=== PATIENT | female | born 1995 | race African-American/Black ===

== ENCOUNTER 2022-04-01 17:04 | Emergency (ER) | payer SELFPAY ==
[~2022-04-01] VITALS: Ht 182.9 cm; Wt 101.0 kg
[~2022-04-01 17:04] MED LIST: CEPH500C2 MT; FAMO-135 MT; MAG-55 MT; ONDA4TAB5 MT
[2022-04-01] MEDS ORDERED: HALOPERIDOL LACTATE 5MG/ML VIAL IM ONE (17:15)
[2022-04-01] MEDS ORDERED: KETOROLAC 30MG/ML VIAL IV STA (17:39)
[2022-04-01] MEDS ORDERED: ACETAMINOPHEN 325MG TABLET PO STA (17:39)
[2022-04-01] MEDS ORDERED: SODIUM CHLORIDE 0.9% 1,000 ML IV ONE (17:45)
[2022-04-01 18:02] LABS: BASOPHILS % 0.3 % (0.0-2.0); HEMATOCRIT. 37.8 % (36.0-48.0); HEMOGLOBIN. 13.1 g/dL (12.0-16.0); LYMPHOCYTES % 12.6 % (20.0-50.0); MEAN CORPUSCULAR HEMOGLOBIN 31.2 pg (28.0-32.0); MEAN PLATELET VOLUME 8.6 fl (7.4-10.4); MONOCYTES % 10.7 % (2.0-8.0); NEUTROPHILS % 76.4 % (40.0-76.0); PLATELET 270 x1000/uL (130-400); RED CELL DISTRIBUTION WIDTH 12.9 % (11.6-14.6)
[2022-04-01 18:11] LABS: PROTHROMBIN TIME 11.2 sec (9.6-11.0)
[2022-04-01 18:15] LABS: CHLORIDE 105 mEq/L (98-107)
[2022-04-01 18:23] LABS: ETHANOL BLOOD < 10 mg/dL
[2022-04-01] MEDS ORDERED: FAMOTIDINE 20MG/2ML VIAL IV ONE (19:00)
[2022-04-01] MEDS ORDERED: ONDANSETRON HCL 4MG/2ML INJ IV ONE (19:00)
[2022-04-01] MEDS ORDERED: FAMO-135 MT (21:03)
[2022-04-01 21:32] VITALS: BP 102/59
== END 2022-04-01 21:53 | disposition home or self-care (01) ==
LOC: ER 17:04
DX: R10.13 Epigastric pain (principal); Z79.899 Other long term (current) drug therapy; R11.2 Nausea with vomiting, unspecified
CPT/HCPCS: 36415; 71045; 76705; 80053; 80320; 83605; 83690; 85025; 85610; 93005; 96361; 96372; 96374; 96375; 99285; J1630; J1885; J2405; J3490; J7030; Z7610; G0480

== ENCOUNTER 2022-12-04 21:13 | Emergency (ER) | payer MEDICAID ==
[~2022-12-04] VITALS: Ht 180.3 cm; Wt 101.0 kg
[2022-12-04 21:16] VITALS: TEMP 99.3; O2SAT 100
[2022-12-04] MEDS ORDERED: KETOROLAC 60MG/2ML VIAL IM STA (22:46)
[2022-12-04] MEDS ORDERED: CEFTRIAXONE SODIUM 1 G/VIAL IM ONE (23:00)
[2022-12-04] MEDS ORDERED: LIDOCAINE HCL/PF 1% 10 MG/ML 5ML VIAL INFIL ONE (23:00)
[2022-12-04 23:02] VITALS: BP 104/79; PULSE 99; RESP 16
[2022-12-04] MEDS ORDERED: ACETAMINOPHEN WITH CODEINE 300/30MG TABLET PO STA (23:02)
[2022-12-04] MEDS ORDERED: IBUP-2029 PO (23:21)
[2022-12-04] MEDS ORDERED: METR-167 MT (23:21)
[2022-12-04] MEDS ORDERED: HYDR-4001 MT (23:21)
[2022-12-04] MEDS ORDERED: AMOX1TAB16 MT (23:21)
[2022-12-04] MEDS ORDERED: ONDA4TAB50 PO (23:21)
== END 2022-12-04 23:59 | disposition home or self-care (01) ==
LOC: ER 21:13
DX: K04.7 Periapical abscess without sinus (principal); R51.9 Headache, unspecified
CPT/HCPCS: 96372; 99284; J0696; J1885; J3490; Z7610